=== PATIENT | female | born 1965 | race Caucasian/White ===

== ENCOUNTER → 2016-04-11 | Outpatient (CLI) | payer BC ==
[~2016-04-11] MED LIST: ALPR-385 PO; CIPR-255 PO; DICY10CA55 PO; EPP3/2 IM; FLUO40CA8 PO; MAGNEVIST IV PRN; SIMV20TA2 PO; SPIR25TA PO; TRET-55 TOP
--- NOTE | 2016-04-11 16:59 | DIAGNOSTIC IMAGING REPORT ---
MR ENTEROGRAPHY ABD/PELVIS COMBO HISTORY: Left lower quadrant abdominal pain. TECHNIQUE: Multiplanar multisequence MRI of the abdomen was performed both before and after the use of intravenous contrast to evaluate the bowel. COMPARISON STUDY: Abdomen and pelvis CT 03/22/2016. FINDINGS: The lung bases are clear. There is a lobular 2.5 cm T2 hyperintense lesion within the right hepatic lobe. This remains unchanged and demonstrates discontinuous peripheral nodular enhancement with delayed filling. Therefore, this represents a hemangioma. There are few additional subcentimeter hypervascular lesions within the liver with the largest in the right hepatic lobe measuring 8 mm. These are not clearly identified on the other sequences and could represent small hypervascular lesions such as focal nodular hyperplasia. The gallbladder, pancreas, spleen, right kidney, and adrenal glands are unremarkable. No retroperitoneal lymphadenopathy. There is a 7 mm T2 hyperintense lesion within the left kidney consistent with a cyst. The bladder, uterus, bilateral adnexa are unremarkable. No pelvic free fluid. No evidence for bowel obstruction. Normal appendix. The small bowel is normal and course and caliber. Thickening involving the transverse colon and proximal descending colon seen on the prior study has since resolved. However, there is now focal thickening at the junction of the descending colon/sigmoid colon with associated pericolonic fat stranding. This could represent an acute diverticulitis or focal colitis. No definite perforation or abscess identified at this time. IMPRESSION: 1. The bowel wall thickening within the transverse colon and proximal descending colon on the prior study has resolved. 2. Interval development of focal thickening at the junction of the descending colon/sigmoid colon with mild pericolonic inflammatory change. This favors a diverticulitis or a focal colitis. No perforation or abscess identified at this time. 3. The small bowel is normal in course and caliber. 4. Additional findings as described above. Electronically signed by: Daniel Montez M.D. 04/11/2016 4:57 PM
== END | disposition home or self-care (01) ==
LOC: C.MRIBC 14:17
PROVIDERS: ATTEND Internal Medicine Gastroenterology
DX: R10.32 Left lower quadrant pain (principal); K63.89 Other specified diseases of intestine